=== PATIENT | female | born 1960 | race Caucasian/White ===

== ENCOUNTER 2017-04-21 10:54 | Emergency (ER) | payer MEDICAID ==
[~2017-04-21] VITALS: Ht 154.9 cm; Wt 59.4 kg
[2017-04-21 11:03] VITALS: BP 140/86
--- NOTE | 2017-04-21 11:09 | NUR ---
Patient to bed 04.
--- NOTE | 2017-04-21 11:20 | NUR ---
PATIENT PRESENTS TO ED WITH C/O UMBILICAL REGION PAIN X 1 WEEK---CONSTIPATION, NA/VOMITING, LOSS OF TASTE DENIES DYSURIA HX---DENIES RX---NONE . DENIES N/V/D; SKIN IS PINK/WARM/DRY; AAOX4 WITH EVEN AND STEADY GAIT; LUNGS CLEAR BL; HR EVEN AND REGULAR; PT DENIES ANY FEVER, CP, SOB, OR COUGH AT THIS TIME; PATIENT STATES PAIN OF 9/10 AT THIS TIME; VSS; PATIENT POSITIONED FOR COMFORT; HOB ELEVATED; BEDRAILS UP X2; BED DOWN. ER MD MADE AWARE OF PT STATUS.
--- NOTE | 2017-04-21 11:32 | NUR ---
Dr. Galo evaluating patient at bedside.
[2017-04-21] MEDS ORDERED: NACL 0.9% 1,000 ML IV SCH (11:37)
[2017-04-21] MEDS ORDERED: ONDANSETRON 4 MG/2 ML VIAL IVP ONE (11:40)
[2017-04-21] MEDS ORDERED: KETOROLAC 30 MG/ML VIAL IVP ONE (11:40)
--- NOTE | 2017-04-21 12:00 | NUR ---
LAB at bedside.
[2017-04-21 12:05] LABS: BASOPHILS # (AUTO) 0.1 K/uL (0.00-0.22); BASOPHILS % (AUTO) 0.8 % (0.0-2.0); EOSINOPHILS # (AUTO) 0.1 K/uL (0-0.4); EOSINOPHILS % (AUTO) 0.8 % (0.0-4.0); HEMATOCRIT 38.3 % (36-48); HEMOGLOBIN 12.2 g/dL (12.0-16.0); LYMPHOCYTES % (AUTO) 19.6 % (20.5-51.1); MEAN CORPUSCULAR HEMOGLOBIN 26 pg (27-31); MEAN CORPUSCULAR HGB CONC 32 g/dL (33-37); MEAN CORPUSCULAR VOLUME 80 fL (80-94); MONOCYTES # (AUTO) 0.3 K/uL (0.8-1.0); MONOCYTES % (AUTO) 2.8 % (1.7-9.3); NEUTROPHILS # (AUTO) 7.9 K/uL (1.8-7.7); PLATELET COUNT (AUTO) 439 K/uL (140-450); RED BLOOD CELL COUNT(AUTO) 4.79 MIL/uL (4.20-5.40); RED CELL DISTRIBUTION WIDTH 15.8 % (11.6-13.7); WHITE BLOOD COUNT (AUTO) 10.4 K/uL (4.8-10.8)
--- NOTE | 2017-04-21 12:08 | NUR ---
PT TAKEN OFF THE UNIT VIA GURNEY BY MANAGER LAND PAWAN FOR CT OF THE ABDOMEN
[2017-04-21 12:14] LABS: ANION GAP 13.5 (8-16); CARBON DIOXIDE 28.9 mmol/L (21-32); CREATININE 0.9 mg/dL (0.6-1.3); POTASSIUM 3.4 mmol/L (3.5-5.1)
[2017-04-21 12:20] LABS: ALBUMIN 3.9 g/dL (3.4-5.0); TOTAL BILIRUBIN 0.5 mg/dL (0.0-1.0)
--- NOTE | 2017-04-21 12:24 | NUR ---
Patient back from CT via gurney.
[2017-04-21 13:23] VITALS: BP 140/86
--- NOTE | 2017-04-21 13:23 | NUR ---
Patient discharged with v/s stable. Written and verbal after care instructions given and explained. Patient alert, oriented and verbalized understanding of instructions. Ambulatory with steady gait. All questions addressed prior to discharge. ID band removed. Patient advised to follow up with PMD. Rx of ZOFRAN AND MOTRIN given. Patient educated on indication of medication including possible reaction and side effects. Opportunity to ask questions provided and answered.
== END 2017-04-21 13:23 | disposition home or self-care (01) ==
LOC: MED 10:54
DX: R10.33 Periumbilical pain (principal); R50.9 Fever, unspecified; R19.7 Diarrhea, unspecified
CPT/HCPCS: 36415; 74176; 80053; 81002; 81025; 82948; 83690; 85025; 96361; 96374; 96375; 99285; J1885; J2405; J7030

== ENCOUNTER 2017-05-06 05:35 | Emergency (ER) | payer MEDICAID ==
[~2017-05-06] VITALS: Ht 152.4 cm; Wt 59.0 kg
[2017-05-06 05:42] VITALS: BP 146/90
--- NOTE | 2017-05-06 05:50 | NUR ---
PT TAKEN TO BED 7.
--- NOTE | 2017-05-06 05:51 | NUR ---
PATIENT IS A 56 Y/O FEMALE WHO PRESENTS TO THE ED C/O ABD PAIN. PT STATES, "I HAVEN'T BEEN GOING TO THE RESTROOM AND IT HURTS." PT REPORTS 10/10 SHARP ABD PAIN THAT DOES NOT RADIATE. PT DENIES CP, SOB, REPORTS NAUSEA/VOMITING, DENIES DIARRHEA. PT AAOX4, RR EVEN/UNLABORED. PT REPOSITIONED FOR COMFORT, BED IN LOWEST POSITION. ER MD DR. PEDROZA NOTIFIED. WILL CONTINUE TO MONITOR.
[2017-05-06 06:16] VITALS: BP 137/82
--- NOTE | 2017-05-06 06:16 | NUR ---
Patient discharged with v/s stable. Written and verbal after care instructions given and explained. Patient alert, oriented and verbalized understanding of instructions. Ambulatory with steady gait. All questions addressed prior to discharge. ID band removed. Patient advised to follow up with PMD. Rx of MAG CITRATE AND MIRALAX given. Patient educated on indication of medication including possible reaction and side effects. Opportunity to ask questions provided and answered.
== END 2017-05-06 06:16 | disposition home or self-care (01) ==
LOC: MED 05:35
DX: K59.00 Constipation, unspecified (principal); R03.0 Elevated blood-pressure reading, without diagnosis of hypertension
CPT/HCPCS: 81002; 81025; 99282

== ENCOUNTER 2017-05-12 16:55 | Emergency (ER) | payer MEDICAID ==
[~2017-05-12] VITALS: Ht 152.4 cm; Wt 57.8 kg
[2017-05-12 16:59] VITALS: BP 136/98
[2017-05-12 17:44] LABS: BASOPHILS # (AUTO) 0.3 K/uL (0.00-0.22); BASOPHILS % (AUTO) 3.5 % (0.0-2.0); EOSINOPHILS % (AUTO) 0.6 % (0.0-4.0); HEMATOCRIT 35.1 % (36-48); HEMOGLOBIN 11.4 g/dL (12.0-16.0); LYMPHOCYTES # (AUTO) 2.7 K/uL (2.5-16.5); LYMPHOCYTES % (AUTO) 35.2 % (20.5-51.1); MEAN CORPUSCULAR HEMOGLOBIN 26 pg (27-31); MEAN CORPUSCULAR HGB CONC 33 g/dL (33-37); MEAN CORPUSCULAR VOLUME 79 fL (80-94); MONOCYTES # (AUTO) 0.4 K/uL (0.8-1.0); MONOCYTES % (AUTO) 4.8 % (1.7-9.3); NEUTROPHILS # (AUTO) 4.2 K/uL (1.8-7.7); NEUTROPHILS % (AUTO) 55.9 % (42.2-75.2); PLATELET COUNT (AUTO) 452 K/uL (140-450); RED BLOOD CELL COUNT(AUTO) 4.46 MIL/uL (4.20-5.40); RED CELL DISTRIBUTION WIDTH 16.8 % (11.6-13.7); WHITE BLOOD COUNT (AUTO) 7.6 K/uL (4.8-10.8)
[2017-05-12 17:52] LABS: ANION GAP 12.9 (8-16); CARBON DIOXIDE 30.7 mmol/L (21-32); CREATININE 0.8 mg/dL (0.6-1.3); POTASSIUM 3.6 mmol/L (3.5-5.1)
[2017-05-12 17:58] LABS: ALBUMIN 3.8 g/dL (3.4-5.0); TOTAL BILIRUBIN 0.3 mg/dL (0.0-1.0)
--- NOTE | 2017-05-12 18:26 | NUR ---
Patient taken to bed 12 via wheelchair per neurodiagnostic tech.
--- NOTE | 2017-05-12 18:30 | NUR ---
56F BIB SELF C/O LBP & N/V X 3 WEEKS. SKIN IS PINK/WARM/DRY; AAOX4 WITH EVEN AND STEADY GAIT; LUNGS CLEAR BL; PT DENIES ANY FEVER, CP, SOB, OR COUGH AT THIS TIME; PATIENT STATES PAIN OF 9/10 AT THIS TIME; PATIENT POSITIONED FOR COMFORT; HOB ELEVATED; BEDRAILS UP X2; BED DOWN. ER MD MADE AWARE OF PT STATUS.
[2017-05-12] MEDS ORDERED: NACL 0.9% 1,000 ML IV ONE (18:50)
[2017-05-12] MEDS ORDERED: ONDANSETRON 4 MG/2 ML VIAL IVP ONE (18:50)
--- NOTE | 2017-05-12 19:07 | NUR ---
Pt report given to ELLIOTT CULP. Transfer of care at this time.
--- NOTE | 2017-05-12 19:15 | NUR ---
PT RESTING IN BED, ON MONITOR, STATES TO BE IN PAIN . ER MD MADE AWARE.
[2017-05-12] MEDS ORDERED: DICYCLOMINE 20 MG/2 ML VIAL IM ONE (19:30)
[2017-05-12 20:11] VITALS: BP 142/98
--- NOTE | 2017-05-12 20:25 | NUR ---
Patient discharged with v/s stable. Written and verbal after care instructions given and explained. Patient alert, oriented and verbalized understanding of instructions. Ambulatory with steady gait. All questions addressed prior to discharge. ID band removed. Patient advised to follow up with PMD IN 24-48 HRS FOR F/U OR RETURN TO ER IF CONDITION WORSENS. Rx of BENTYL given. Patient educated on indication of medication including possible reaction and side effects. Opportunity to ask questions provided and answered.
== END 2017-05-12 20:25 | disposition home or self-care (01) ==
LOC: MED 16:55
DX: R10.30 Lower abdominal pain, unspecified (principal); R11.0 Nausea; R63.0 Anorexia
CPT/HCPCS: 36415; 74022; 74176; 80053; 83690; 85025; 96361; 96374; 96375; 99285; J0500; J2405; J7030

== ENCOUNTER 2021-05-31 19:09 | Emergency (ER) | payer BC, MEDICAID ==
[~2021-05-31] VITALS: Ht 151.4 cm; Wt 62.6 kg
[2021-05-31 20:29] VITALS: BP 177/95
--- NOTE | 2021-05-31 20:36 | NUR ---
PT IN LOBBY
[2021-05-31 21:39] LABS: BASOPHILS % (AUTO) 0.3 % (0.0-2.0); EOSINOPHILS # (AUTO) 0.1 K/uL (0-0.4); EOSINOPHILS % (AUTO) 1.2 % (0.0-4.0); HEMATOCRIT 43.9 % (36-48); HEMOGLOBIN 15.3 g/dL (12.0-16.0); LYMPHOCYTES # (AUTO) 3.2 K/uL (2.5-16.5); LYMPHOCYTES % (AUTO) 38.6 % (20.5-51.1); MEAN CORPUSCULAR HEMOGLOBIN 30 pg (27-31); MEAN CORPUSCULAR HGB CONC 35 g/dL (33-37); MEAN CORPUSCULAR VOLUME 86.7 fL (80-94); MONOCYTES # (AUTO) 0.4 K/uL (0.8-1.0); MONOCYTES % (AUTO) 5.2 % (1.7-9.3); NEUTROPHILS # (AUTO) 4.6 K/uL (1.8-7.7); NEUTROPHILS % (AUTO) 54.7 % (42.2-75.2); PLATELET COUNT (AUTO) 361 K/uL (140-450); RED BLOOD CELL COUNT(AUTO) 5.07 MIL/uL (4.20-5.40); RED CELL DISTRIBUTION WIDTH 12.5 % (11.6-13.7); WHITE BLOOD COUNT (AUTO) 8.4 K/uL (4.8-10.8)
[2021-05-31 21:56] LABS: ALBUMIN 3.7 g/dL (3.4-5.0); ANION GAP 14.7 (8-16); CARBON DIOXIDE 28.3 mmol/L (21-32); CREATININE 0.6 mg/dL (0.6-1.3); TOTAL BILIRUBIN 0.5 mg/dL (0.0-1.0)
[2021-05-31 22:32] LABS: APPEARANCE,URINE CLEAR (CLEAR); BILIRUBIN,URINE NEGATIVE (NEGATIVE); BLOOD, URINE NEGATIVE (NEGATIVE); COLOR,URINE YELLOW (YELLOW); LEUKOCYTE ESTERASE ,URINE NEGATIVE (NEGATIVE); NITRITE, URINE NEGATIVE (NEGATIVE); UGLUCOSE 3+ (NEGATIVE)
[2021-05-31] MEDS ORDERED: KETOROLAC 30 MG/ML VIAL IM ONE (22:50)
[2021-05-31] MEDS ORDERED: ONDANSETRON 4 MG ODT PO ONE (22:50)
--- NOTE | 2021-05-31 23:38 | NUR ---
SWABS COLLECTED. PT MEDICATED PER MD ORDERS.
[2021-06-01] MEDS ORDERED: NACL 0.9% 1,000 ML IV ONE (01:05)
[2021-06-01] MEDS ORDERED: ONDA-188 SL (01:06)
[2021-06-01] MEDS ORDERED: KETOROLAC 30 MG/ML VIAL ONE (01:33)
[2021-06-01] MEDS ORDERED: ONDANSETRON 4 MG ODT ONE (01:33)
[2021-06-01 02:50] VITALS: BP 148/75
== END 2021-06-01 02:50 | disposition home or self-care (01) ==
LOC: MED 19:09
DX: R11.2 Nausea with vomiting, unspecified (principal); R19.7 Diarrhea, unspecified; R42 Dizziness and giddiness; Z20.822 Contact with and (suspected) exposure to COVID-19
CPT/HCPCS: 36415; 80053; 81003; 83690; 85025; 96360; 96372; 99285; J1885; J7030; Q0162; U0003